=== PATIENT | female | born 1995 | race Caucasian/White ===

== ENCOUNTER 2019-11-23 13:27 | Outpatient (CLI) | payer OTHER, SELFPAY ==
--- NOTE | ~2019-11-23 | US_ITS ---
EXAMINATION: US joint non vasc ltd RT DATE: 11/23/2019 14:03 INDICATION: Right knee pain TECHNIQUE: Multiple grayscale and Doppler ultrasound images of the posterior medial aspect of the rig ht knee in the region of pain were obtained. COMPARISON: None FINDINGS: The right popliteal vein is patent and compressible. Popliteal arteries normal in caliber. No Lund's cyst or other abnormal fluid collections identified. No soft tissue masses identified or pathologica lly enlarged popliteal lymphadenopathy. IMPRESSION: 1. Normal ultrasound of the posterior and medial right knee. Reviewed, dictated and finalized at location A.
== END 2019-11-23 13:28 | disposition home or self-care (01) ==
PROVIDERS: PCP Internal Medicine Gastroenterology; Visit Provider Internal Medicine Gastroenterology
DX: M25.561 Pain in right knee (principal)
CPT/HCPCS: 76882

== ENCOUNTER 2021-12-14 08:38 | Outpatient (RCR) | payer OTHER, SELFPAY ==
[2021-12-14 10:27] LABS: Hematocrit 34.2 % (37.0-47.0); Hemoglobin 11.5 g/dL (12.0-15.0)
[2021-12-14 10:44] LABS: Glucose 1 Hour PP 50gm Dose 103 mg/dL
[2021-12-14 11:58] LABS: HIV 1/2 Ab P24 Ag Result Negative (Negative)
[2021-12-15] MEDS: RHO(D) IMMUNE GLOBULIN 300 MCG/2 ML SYRINGE IM (12:40)
== END 2022-03-14 23:59 | disposition home or self-care (01) ==
LOC: ANHLAB 08:38
PROVIDERS: Visit Provider Obstetrics & Gynecology
DX: Z11.4 Encounter for screening for human immunodeficiency virus [HIV] (principal); Z29.13 Encounter for prophylactic Rho(D) immune globulin; O36.0190 Maternal care for anti-D [Rh] antibodies, unspecified trimester, not applicable or unspecified; Z3A.00 Weeks of gestation of pregnancy not specified
CPT/HCPCS: 36415; 82947; 85014; 85018; 85461; 86703; 90384; 96372; G0432; J2790

== ENCOUNTER 2022-01-31 09:58 | Outpatient (CLI) | payer OTHER, SELFPAY ==
[2022-01-31] VITALS (9 sets, daily range): BP systolic 92–128; BP diastolic 50–77; PULSE 86–102; BMI 36.3
--- NOTE | ~2022-01-31 | US_ITS ---
EXAMINATION: US OB limited w BPP DATE: 01/31/2022 13:30 CDT INDICATION: Evaluate amniotic fluid index and biophysical profile. TECHNIQUE: Real-time transabdominal obstetric ultrasound. FINDINGS: No prior studies for comparison. There is a single living fetus in vertex presentation. The placenta is posterior fundal without plac enta previa. CHAITANYA is lower normal measuring 8.2 cm. cardiac activity and movement is noted with a heart rate of 150 beats per minute. Biophysical profile: breathin of 2 movement: 2 of 2 tone: 2 of 2 Amniotic flud pocket: 2 of 2 Total score: 8 of 8 IMPRESSION: 1. Single living intrauterine in vertex presentation. 2: Total biophysical profile score of 8/8. 3: CHAITANYA is lower normal measuring 8.2 cm. Reviewed, dictated and finalized at location B.
[2022-01-31 10:55] LABS: Alanine Aminotransferase 16 U/L (6-35); Albumin Level 3.5 g/dL (3.5-5.1); Alkaline Phosphatase 130 U/L (38-126); Anion Gap 8 mmol/L (8-16); Aspartate Amino Transferase 20 U/L (14-36); Bilirubin,Total 0.2 mg/dL (0.2-1.3); Blood Urea Nitrogen 6 mg/dL (7-17); Calcium 8.8 mg/dL (8.4-10.2); Carbon Dioxide 21 mmol/L (22-30); Chloride 108 mmol/L (98-107); Estimated Glomerular Filt Rate > 60; Glucose 119 mg/dL (65-110); Potassium 3.8 mmol/L (3.4-5.0); Sodium 137 mmol/L (137-145); Uric Acid 3.3 mg/dL (2.5-7.5)
[2022-01-31 10:56] LABS: Appearance Urine Slightly Cloudy (Clear); Bilirubin Urine Negative (Negative); Blood Urine Negative (Negative); Color Urine Yellow (Yellow); Glucose Urine UA Negative (Negative); Ketones Urine Negative (Negative); Leukocyte Esterase Ur Trace LEU/UL (Negative); Nitrate Urine Negative (Negative); Protein Urine Trace mg/dL (Negative); Specific Grav Ur >= 1.030 (1.001-1.035); Urobilinogen Urine 0.2 mg/dL (<2.0)
[2022-01-31 10:59] LABS: Add Urine Microscopic? YES
[2022-01-31 11:04] LABS: Bacteria Urine Trace /hpf; Mucus Urine Rare /lpf; Squamous Epithelial Cell Urine Many /hpf (Few)
[2022-01-31 11:05] LABS: Creatinine Urine 130.8 mg/dL; Total Protein Urine Random 8 mg/dL; Ur Ttl Prot Creatinine Ratio 0.06 mg/mg (0-0.20)
[2022-01-31 11:24] LABS: Basophils Percent Auto 0.2 % (0.2-1.2); Eosinophils Absolute Auto 0.1 K/mm3 (0-0.3); Hematocrit 33.2 % (37.0-47.0); Hemoglobin 11.1 g/dL (12.0-15.0); Immature Granulocyte Absolute 0.06 K/mm3 (0.00-0.031); Immature Granulocyte Percent A 0.7 % (0-0.5); Lymphocytes Absolute Auto 1.31 K/mm3 (0.9-3.2); Lymphocytes Percent Auto 15.8 % (18.3-44.2); Mean Corpuscular HGB Conc 33.4 g/dl (32-36); Mean Corpuscular Hemoglobin 29.4 pg (26-34); Mean Corpuscular Volume 88.1 fl (80-100); Mean Platelet Volume 12.6 fl (7.4-10.4); Monocytes Absolute Auto 0.5 K/mm3 (0.1-0.6); Monocytes Percent Auto 5.4 % (2.6-8.5); Neutrophils Absolute Auto 6.4 K/mm3 (1.3-6.7); Neutrophils Percent Auto 76.9 % (45.5-73.1); Platelet Count Result 146 k/mm3 (150-375); Red Blood Count 3.77 M/mm3 (4.2-5.4); Red Cell Distribution Width 13.7 % (11.5-14.5); White Blood Count 8.3 K/mm3 (4.5-10.0)
--- NOTE | 2022-01-31 11:54 | PC.NURSE ---
Dr. Chase informed of pt's c/o headache x's 3 days. Took Tylenol last night with no relief. Pt's BP at home were 130's/80's and she had preeclampsia with her last delivery. Informed of lab results and BP's. Discussed variable decels in otherwise reactive NST. Order received for BPP and CHAITANYA. May discharge to home if normal.
[2022-01-31] MEDS: CAFFEINE 200 MG TABLET PO (12:08)
[2022-01-31] MEDS: ACETAMINOPHEN 500 MG TABLET 1000 MG PO (12:08)
--- NOTE | 2022-01-31 13:50 | PC.NURSE ---
Dr. Chase informed CHAITANYA 8.2 cm. Order received for discharge and pt to have repeat U/S in office in 1 week to check fluid.
== END 2022-01-31 13:55 | disposition home or self-care (01) ==
LOC: ANHOBOP 10:02 → ANHOBPP 10:03
PROVIDERS: Visit Provider Obstetrics & Gynecology
DX: O13.9 Gestational [pregnancy-induced] hypertension without significant proteinuria, unspecified trimester (principal); Z3A.00 Weeks of gestation of pregnancy not specified
CPT/HCPCS: 36415; 59025; 76815; 76819; 80053; 81001; 82570; 84156; 84550; 85025; 99199; A9270

== ENCOUNTER 2022-02-16 10:20 | Outpatient (RCR) | payer OTHER, SELFPAY ==
--- NOTE | ~2022-02-16 | US_ITS ---
EXAMINATION: US OB limited w BPP DATE: 02/16/2022 11:21 INDICATION: Oligohydramnios during third trimester TECHNIQUE: Real-time pelvic ultrasound was performed. The interpreting radiologist was not present fo r the study. COMPARISON: 01/31/2022 FINDINGS: There is a single living fetus in vertex presentation. The placenta is posterior fundal. heart rate is 132 beats per minute (bpm). Amniotic fluid index of 6.6 cm which remains below normal range (5th%-95%: 7.3-23.9 cm at 38 weeks estimated gestational age) Biophysical profile performed by the technologist: breathing (30 sec sustained breathing in 30 minutes): 2 out of 2 movement (3 gross body movements in 30 minutes): 2 out of 2 tone (one episode of ebwmlas-qcthsbdst-lqvrvqh limb movement): 2 out of 2 Amniotic fluid pocket (2 cm): 2 out of 2 Total score: 8 out of 8 IMPRESSION: 1. Single living fetus in vertex presentation with heart rate of 132 bpm. 2. Biophysical profile 8 out of 8. 3. Oligohydramnios with amniotic fluid index of 6.6 cm Reviewed, dictated and finalized at location A.
[2022-02-16 11:02] VITALS: BP 137/74; PULSE 111
--- NOTE | 2022-02-16 12:01 | PC.NURSE ---
Juliane Michaels notified of CHAITANYA, Informed Dr Chase of results. No further orders.
== END 2022-03-13 10:14 | disposition home or self-care (01) ==
LOC: ANHOBOP 10:20
PROVIDERS: Visit Provider Obstetrics & Gynecology
DX: O41.03X0 Oligohydramnios, third trimester, not applicable or unspecified (principal); Z3A.38 38 weeks gestation of pregnancy
CPT/HCPCS: 59025; 76815; 76819

== ENCOUNTER 2022-02-21 16:11 | Outpatient (CLI) | payer OTHER, SELFPAY ==
[2022-02-21 16:36] LABS: Hematocrit 34.1 % (37.0-47.0); Hemoglobin 10.8 g/dL (12.0-15.0); Mean Corpuscular HGB Conc 31.7 g/dl (32-36); Mean Corpuscular Hemoglobin 27.9 pg (26-34); Mean Corpuscular Volume 88.1 fl (80-100); Mean Platelet Volume 12.4 fl (7.4-10.4); Platelet Count Result 139 k/mm3 (150-375); Red Blood Count 3.87 M/mm3 (4.2-5.4); Red Cell Distribution Width 13.8 % (11.5-14.5); White Blood Count 8.3 K/mm3 (4.5-10.0)
[2022-02-22 16:51] LABS: Rapid Plasma Reagin Non-Reactive (NonReactive)
== END 2022-02-21 16:12 | disposition home or self-care (01) ==
PROVIDERS: Visit Provider Obstetrics & Gynecology
DX: Z34.93 Encounter for supervision of normal pregnancy, unspecified, third trimester (principal); Z3A.00 Weeks of gestation of pregnancy not specified
CPT/HCPCS: 36415; 85027; 86592; 86850; 86880; 86900; 86901; 86902

== ENCOUNTER 2022-02-22 05:22 | Inpatient (IN) | payer OTHER, SELFPAY ==
--- NOTE | 2022-02-09 14:55 | PC.NURSE ---
Verified with OR schedule and patient--C/S on at 0730 Patient given requisition for lab draw on 02/21/22
[2022-02-22] VITALS (42 sets, daily range): BP systolic 106–144; BP diastolic 63–80; PULSE 58–86; RESP 15–20; TEMP 36.2–36.8; O2SAT 96–100; BMI 38.0
--- OUTSIDE RECORDS SUMMARY | 2022-02-22 05:28 | XMS_ITS ---
:1995 Author Care Team Providers Name Role Phone KENIA LEVI MD Landscape Photographer [phone] Allergies Code Code System Name Reaction Severity Status Onset NKDA ? Medications Name Status Start Date Stop Date ? ? Adult Low Dose Aspirin 81 mg tablet,delayed release Completed ? 10/31/2016 Take 1 tablet every day by oral route. amoxicillin 500 mg capsule Completed ? 08/05 azithromycin 250 mg tablet Completed ? 09/05 bupropion HCl SR 150 mg tablet,12 hr sustained-release Active ? Not available TAKE 1 TABLET BY MOUTH TWICE DAILY Calcium 600 with Vitamin D3 600 mg-10 mcg (400 unit) capsule Com pleted ? 06/02/2019 Take 1 capsule twice a day by oral route. calcium carbonate 600 mg-vitamin D3 10 mcg (400 unit) tablet Act gustavo ? Not available TAKE 1 TABLET BY MOUTH TWICE DAILY calcium carbonate 600 mg-vitamin D3 20 mcg (800 unit) tablet Com pleted ? 06/02/2019 Take 1 tablet twice a day by oral route for 30 days. citalopram 20 mg tablet Completed ? 01/28/20 17 citalopram 40 mg tablet Completed ? 01/28/20 17 clindamycin HCl 150 mg capsule Completed ? 0 11/22/2019 clindamycin HCl 300 mg capsule Completed ? 0 11/22/2019 doxycycline hyclate 100 mg capsule Completed ? 03/01/2020 Take 1 capsule twice a day by oral route. doxycycline monohydrate 100 mg capsule Completed ? 11/22/2019 ferrous sulfate 325 mg (65 mg iron) tablet Completed ? 06/02/2019 fluconazole 150 mg tablet Active ? Not av ailable USE A SINGLE DOSE FOR YEAST INFECTION fluoxetine 20 mg tablet Completed ? 11/01/19 17 gabapentin 300 mg capsule Active ? Not av ailable
--- OUTSIDE RECORDS SUMMARY | 2022-02-22 05:28 | XMS_ITS ---
:1995 Author Care Team Providers Name Role Phone LEA CARDENAS MD Primary Care Provider [phone] Allergies Code Code System Name Reaction Severity Status Onset NKDA ? Medications Name Status Start Date Stop Date ? ? amoxicillin 875 mg-potassium clavulanate 125 mg tablet Unknown ? Not available calcium carbonate 600 mg-vitamin D3 20 mcg (800 unit) tablet Com pleted ? 09/16/2018 TK 1 T PO BID clindamycin HCl 150 mg capsule Completed ? 0 09/16/2018 clindamycin HCl 300 mg capsule Completed ? 0 09/16/2018 fluconazole 150 mg tablet Completed ? 2018 fluconazole 200 mg tablet Unknown ? Not av ailable TK 1 T PO QD fluoxetine 10 mg tablet Completed ? 07/19/19 15 fluoxetine 20 mg tablet Completed ? 09/17/19 19 Take 1 tablet(s) every day by oral route. gabapentin 300 mg capsule Completed ? 2018 TK 1 C PO TID hydrocodone 5 mg-acetaminophen 325 mg tablet Active ? Not available hydrocodone 7.5 mg-ibuprofen 200 mg tablet Completed ? 09/16/2018 ibuprofen 600 mg tablet Unknown ? Not avai lable ibuprofen 800 mg tablet Completed ? 09/17/19 19 meloxicam 7.5 mg tablet Active ? Not avai lable nitrofurantoin macrocrystal 100 mg capsule Unknown ? Not available nitrofurantoin monohydrate/macrocrystals 100 mg capsule Complete d ? 09/16/2018 penicillin V potassium 500 mg tablet Completed ? 09/16/2018 phenazopyridine 200 mg tablet Unknown ? No t available TK 1 T PO TID Q EIGHT H rizatriptan 10 mg tablet Active ? Not gregg ilable TK 1 T PO AT ONSET OF MIGRAINE AND MAY REPEAT IN 2 H DO NOT TAKE MORE THAN 2 TS PER DAY
[2022-02-22 06:08] LABS: Mean Platelet Volume 12.7 fl (7.4-10.4); Platelet Count Result 139 k/mm3 (150-375)
--- NOTE | 2022-02-22 06:09 | LDADM ---
This patient, Rosa Jeter, was admitted to Labor/Delivery/Recovery 119 on 02/22/22 at 05:22. Plans for labor, pain management and were discussed with patient. Patient/family oriented to hospital policies and general routines including ID bracelet, bed and alarms, visiting hours, pain management, procedures, bathroom and other care routines, personal items, smoking policy, room service/diet and guest tray routines, infant security routines, and visiting hours. Patient/Family are encouraged to report perceived risks to care and to ask questions if they do not understand what they are told or what they should do. See OBIX for further documentation.
--- NOTE | 2022-02-22 06:49 | WPDANESEPPF ---
Anes - Initial Pre Proc Eval Procedure: Operation Date: 02/22/22 07:30 Proposed Procedures p Repeat Section - Kehinde Chase MD Date/Time: 02/22/22 06:49 Surgeon: Kehinde Chase MD Pre Op Diagnosis: C/S Patient Data Age: 26 Gender: F Height: 1.65 m Weight: 103.5 kg Last Vital Signs Temp 36.7 C 02/22/22 06:16 Pulse 83 02/22/22 06:31 BP 127/77 02/22/22 06:31 O2 Del Method Room Air 02/22/22 06:08 Allergies Allergy/AdvReac Type Severity Reaction Status Date / Time No Known Allergies Allergy Verified 02/09/22 14:30 Home Medications Medication Instructions Recorded Confirmed Type cetirizine 10 mg tablet (Zyrtec) 10 mg PO DAILY PRN Allergy Symptoms 01/31/22 02/22/22 History gabapentin 300 mg capsule 300 mg PO BID 01/31/22 02/22/22 History magnesium 200 mg tablet 200 mg PO DAILY 01/31/22 02/22/22 History vit no.95-ferrous 1 tablet PO DAILY 01/31/22 02/22/22 History fumarate 28 mg-folic acid 800 mcg tablet () hydrocodone 5 mg-acetaminophen 325 1 tablet PO Q4H PRN pain #25 tabs 02/24/22 Rx mg tablet Laboratory Tests 02/22/22 02/22/22 06:01 06:01 Plt Count 139 k/mm3 L k/mm3 (150-375) MPV 12.7 fl H fl (7.4-10.4) HIV 1&2 Ab/P24 Ag 4thGn Pending Patient hx anesthesia problems: none Family hx anesthesia problems: none Results Review: All pre-operative results and documents have been reviewed as part of the pre-operative evaluation. [facility] Family History Family History (Updated 02/09/22 @ 14:32 by Della Quinteros RN) Grandparent Congestive heart failure Breast cancer in female Social History Social History Smoking status: Never smoker Substance use: never Spiritual care concerns: No Anes - Eval Final PreProcedure Day of Procedure 02/22/22 06:49 Patient weight: obese Heart: regular rate and rhythm Lungs: clear to auscultation and normal air movement Airway: Mallampati scale class II Neurological: alert and oriented Last oral intake: >/= 8 hours ASA classification: II Emergent: no Anesthetic plan: proceed Anesthesia type and monitoring: regional spinal Results Review: All pre-operative results and documents have been reviewed as part of the pre-operative evaluation. Informed Consent: The patient's anesthetic plan and its attendant risks and benefits were discussed with the patient/family/POA. Questions were solicited and answers provided to the satisfaction of the patient/family/POA.
[2022-02-22] MEDS: LACTATED RINGERS 1,000 ML 125 ML IV CONT (06:54)
[2022-02-22 07:05] LABS: HIV 1/2 Ab P24 Ag Result Negative (Negative)
--- NOTE | 2022-02-22 07:23 | PM.IMHP ---
H&P: HPI History of Present Illness Date/Time: 02/22/22 07:23 Chief Complaint: Term Narrative: this patient is a 26-year-old multiparous female at 39 weeks gestation with history of previous delivery who presents for repeat delivery. She understands there is risk of the surgery. She understands that injuries may occur that result in hospitalization, more surgery, severe illness. She understands risk of hemorrhage and infection. Review of Systems Review of Systems: All systems reviewed & are unremarkable except as noted in HPI and below Constitutional: Constitutional: Denies chills, Denies fatigue, Denies fever(s) and Denies weakness Eyes: Eyes: Denies blurry vision, Denies change in vision, Denies loss of peripheral vision, Denies loss of vision, Denies other visual disturbances and Denies eye pain ENT: Denies vertigo, Denies dizziness, Denies hearing loss, Denies mouth pain, Denies nasal obstruction, Denies neck mass and Denies neck pain Cardiovascular: Cardiovascular: Denies chest pain, Denies diaphoresis, Denies syncope, Denies leg edema and Denies dyspnea Respiratory: Respiratory: Denies chest congestion, Denies cough, Denies hemoptysis, Denies dyspnea and Denies wheezing Gastrointestinal: Gastrointestinal: Denies abdominal pain, Denies constipation, Denies diarrhea, Denies nausea and Denies vomiting Genitourinary: Genitourinary: Denies hematuria, Denies change in libido, Denies nocturia, Denies genital lesions, Denies flank pain and Denies urinary urgency Musculoskeletal: Musculoskeletal: Denies abnormal gait, Denies back pain, Denies myalgias, Denies arthralgias, Denies joint swelling, Denies muscle weakness and Denies neck pain Integumentary/Breasts: Skin/Breast: Denies swelling, Denies breast pain, Denies breast mass, Denies dry skin, Denies nipple discharge, Denies unusual bruising and Denies jaundice Neurologic: Denies Neuro-related abnormal movements, Denies Abnormal speech present, Denies abnormal gait, Denies behavioral changes, Denies confusion, Denies vertigo, Denies dizziness, Denies syncope, Denies loss of vision, Denies memory loss, Denies convulsions and Denies weakness Psychiatric: Psychiatric: Denies abnormal sleep pattern, Denies behavioral changes, Denies change in libido, Denies confusion, Denies depression, Denies anhedonia and Denies memory loss Endocrine: Endocrine: Reports no additional endocrine complaints, Denies change in libido and Denies fatigue Hematologic/Lymphatic: Hematologic/Lymphatic: Reports no additional hematologic/lymphatic complaints Allergic/Immunologic: Allergic/Immunologic: Reports no additional allergic/immunologic complaints and Denies wheezing [facility] Family History Family History (Updated 02/09/22 @ 14:32 by Della Quinteros RN) Grandparent Congestive heart failure Breast cancer in female Social History Social History Smoking status: Never smoker Substance use: never Spiritual care concerns: No Meds Home Medications and Allergies Home Medications Medication Instructions Recorded Confirmed Type cetirizine 10 mg tablet (Zyrtec) 10 mg PO DAILY PRN Allergy Symptoms 01/31/22 02/22/22 History gabapentin 300 mg capsule 300 mg PO BID 01/31/22 02/22/22 History magnesium 200 mg tablet 200 mg PO DAILY 01/31/22 02/22/22 History vit no.95-ferrous 1 tablet PO DAILY 01/31/22 02/22/22 History fumarate 28 mg-folic acid 800 mcg tablet () Allergies Allergy/AdvReac Type Severity Reaction Status Date / Time No Known Allergies Allergy Verified 02/09/22 14:30 Vital Signs Vital Signs - 24 hr 02/22/22 06:08 02/22/22 06:16 02/22/22 06:31 Temperature 98.1 F Pulse Rate 83 83 Blood Pressure 126/79 127/77 Oxygen Delivery Room Air Exam Const: General: cooperative, healthy appearing, comfortable and no acute distress; No confusion Orientation/consciousness: oriented to person, oriented to place, orie
--- NOTE | 2022-02-22 07:26 | WPDHPUPDATE1 ---
History and Physical Update Update Date/Time: 02/22/22 07:26 History and Physical has been reviewed, including an updated exam of the patient. There are NO changes in the patient's condition. Risks, benefits, and alternatives have been discussed and questions answered. Patient agrees to proceed with procedure.
[2022-02-22] MEDS: ceFAZolin 2 GM/D5W 50 ML 2 GM/50 ML BAG IVPB (07:30)
--- NOTE | 2022-02-22 08:24 | W.PM.PROC2 ---
Procedure Note - Detailed Date of Procedure 02/22/22 Pre-op Diagnosis Previous delivery. Term gestation Post-op Diagnosis Same Procedure Performed Low-transverse section Surgeon Kehinde Chase MD Anesthesia Spinal Indications Previous delivery, term gestation Findings Normal gestational maternal anatomy, average size , normal Apgars. Description of Procedure The patient was taken the operating room. She was prepped and draped in dorsal supine position with a leftward tilt. This was done after spinal anesthetic was applied. A low-transverse skin incision was made and carried down till of the fascia with the knife. The fascial incision was made with the knife. The fascial incision was extended laterally with Strong scissors. The fascia was tented upward superiorly and inferiorly the rectus muscles were dissected off bluntly. The rectus muscles were the midline. The preperitoneal fat and peritoneum were dissected open bluntly at the superior aspect of the rectus muscles. The peritoneal incision was extended superior and inferior with good position of bladder. The uterine incision was made with a scalpel down to the level of the amniotic cavity. The amniotic cavity was entered bluntly. The was delivered. The cord was clamped and cut and the infant was handed off to waiting pediatric staff. Cord bloods were obtained. The placenta was removed manually. The uterus was exteriorized. The uterus was cleared of all clots, debris and membranes. The uterus was closed in 0 Vicryl running lock fashion. An imbricating over a was placed along the incision line as well. The uterus was returned to the abdomen. The gutters were cleared of all clots and debris. The fascia was closed with 0 Vicryl running fashion. The subcutaneous tissue was irrigated pinpoint bleeders were cauterized. The skin was closed with subcuticular absorbable sujatha. The skin incision line was covered with glue. The patient tolerated the procedure well. She has taken recovery room in stable condition. Sponge lap and needle counts were correct x2. Estimated Blood Loss 500 Complications No immediate complications Condition Stable Disposition PACU
--- NOTE | 2022-02-22 10:42 | OBPPTRN ---
Patient transferred to post room # 279 via stretcher. Support person present. Oriented to unit, room, information board, rooming in, admission packet and security measures. Patient verbalizes understanding.
[2022-02-22] MEDS: KETOROLAC 30 MG/ML VIAL (*BKC) IV PUSH (11:58)
[2022-02-22] MEDS: DOCUSATE SODIUM 100 MG CAPSULE PO (16:19)
[2022-02-22] MEDS: DEXTROSE 5%/0.45% SOD CHL 1,000 ML 125 ML IV CONT (16:25)
[2022-02-22] MEDS: HYDROcodone/acetaminophen (*CRX) 5-325 MG TABLET 1 TAB PO (20:31)
[2022-02-22] MEDS: IBUPROFEN 600 MG TABLET PO (20:31)
[2022-02-23 00:25] VITALS: BP 128/65; PULSE 87; RESP 16; TEMP 36.8
[2022-02-23] MEDS: HYDROcodone/acetaminophen (*CRX) 5-325 MG TABLET 1 TAB PO ×4 (00:40→19:14)
[2022-02-23 04:35] VITALS: BP 123/64; PULSE 87; RESP 16; TEMP 36.6
[2022-02-23] MEDS: IBUPROFEN 600 MG TABLET PO ×3 (04:51→19:13)
[2022-02-23 05:03] LABS: Basophils Percent Auto 0.2 % (0.2-1.2); Eosinophils Absolute Auto 0.1 K/mm3 (0-0.3); Eosinophils Percent Auto 1.4 % (0-4.4); Hematocrit 33.6 % (37.0-47.0); Hemoglobin 10.6 g/dL (12.0-15.0); Immature Granulocyte Absolute 0.06 K/mm3 (0.00-0.031); Immature Granulocyte Percent A 0.6 % (0-0.5); Lymphocytes Percent Auto 15.7 % (18.3-44.2); Mean Corpuscular HGB Conc 31.5 g/dl (32-36); Mean Corpuscular Volume 88.9 fl (80-100); Monocytes Absolute Auto 0.7 K/mm3 (0.1-0.6); Monocytes Percent Auto 7.3 % (2.6-8.5); Neutrophils Absolute Auto 7.1 K/mm3 (1.3-6.7); Neutrophils Percent Auto 74.8 % (45.5-73.1); Platelet Count Result 118 k/mm3 (150-375); Red Blood Count 3.78 M/mm3 (4.2-5.4); Red Cell Distribution Width 14.1 % (11.5-14.5); White Blood Count 9.5 K/mm3 (4.5-10.0)
--- NOTE | 2022-02-23 07:20 | P.PNOB_ITS ---
OB - PN: Subj Subjective Date/time seen: 02/23/22 07:20 Patient comments: no complaints baby status: nursing well feeding status: exclusively breast feeding Narrative: POD 1 from primary CS. Doing well. Normal lochia. Eating, ambulating, jones out. OB - PN: Obj Data Labs CBC & Chem 7: 02/23/22 04:36 Labs: Laboratory Results - last 24 hr 02/23/22 04:36 WBC 9.5 RBC 3.78 L Hgb 10.6 L Hct 33.6 L MCV 88.9 MCH 28.0 MCHC 31.5 L RDW 14.1 Plt Count 118 L MPV 13.0 H Immature Gran % (Auto) 0.6 H Neut % (Auto) 74.8 H Lymph % (Auto) 15.7 L Christian % (Auto) 7.3 Eos % (Auto) 1.4 Baso % (Auto) 0.2 Lymph # (Auto) 1.50 Christian # (Auto) 0.7 H Eos # (Auto) 0.1 Baso # (Auto) 0.0 Abs Immat Gran (auto) 0.06 H Absolute Neuts (auto) 7.1 H Absolute Nucleated RBC 0.0 Nucleated RBC % 0.0 OB - PN A/P Plan day: 1 Plan: routine care Comments: circ done after consented. routine care Time Spent With Patient Time: Total time spent is greater than 50% in coordination of care (as documented) at patient's floor/unit and/or counseling patient: Exam Narrative: NAD abdomen soft, appropriately tender, incision bandaged Extremities nontender with 1+ edema
[2022-02-23 08:00] VITALS: PULSE 87; RESP 16; O2SAT 99
[2022-02-23 08:05] VITALS: BP 124/63; PULSE 78; RESP 18; TEMP 36.1; O2SAT 100
[2022-02-23] MEDS: DOCUSATE SODIUM 100 MG CAPSULE PO ×2 (09:22→16:12)
[2022-02-23] MEDS: SIMETHICONE 80 MG TAB.CHEW PO ×4 (09:22→23:01)
[2022-02-23] MEDS: MULTIVIT/MIN/PREN/FOL AC/IRON TABLET 1 TAB PO (09:22)
[2022-02-23] MEDS: HYDROcodone/acetaminophen (*CRX) 10-325 MG TABLET 1 TAB PO ×3 (09:22→23:02)
--- NOTE | 2022-02-23 10:06 | WPDANLDNPN2 ---
Anes-Prog Note L&D-Neuraxial Date/Time: 02/23/22 10:06 Patient feedback: Patient satisfied with post-operative pain management.
--- NOTE | 2022-02-23 10:06 | WPDANLDPN2 ---
Anes-Prog Note L&D Date/Time: 02/23/22 10:06 Neuro status: Neuro function grossly intact. Vital Signs: Last Vital Signs Temp 36.6 C 02/23/22 04:35 Pulse 87 02/23/22 04:35 Resp 16 02/23/22 04:35 BP 123/64 02/23/22 04:35 Pulse Ox 99 02/22/22 12:12 O2 Del Method Room Air 02/22/22 06:08 Pain score (VAS): 0 I/O: Intake & Output 02/22/22 02/23/22 02/23/22 23:59 07:59 15:59 Intake Total 1800 1800 Output Total 450 2400 Balance 1350 -600 Patient feedback: Patient satisfied with anesthetic care.
[2022-02-23 19:22] VITALS: BP 143/68; PULSE 91; RESP 16; TEMP 36.4; O2SAT 100
[2022-02-24] MEDS: SIMETHICONE 80 MG TAB.CHEW PO ×2 (04:34→09:52)
[2022-02-24] MEDS: IBUPROFEN 600 MG TABLET PO (04:34)
[2022-02-24] MEDS: HYDROcodone/acetaminophen (*CRX) 5-325 MG TABLET 1 TAB PO ×2 (04:35→09:51)
[2022-02-24 07:20] VITALS: BP 107/66; PULSE 80; RESP 18; TEMP 36.4; O2SAT 99
[2022-02-24] MEDS: DOCUSATE SODIUM 100 MG CAPSULE PO (09:51)
--- NOTE | 2022-02-24 13:02 | P.PNOB_ITS ---
OB - PN: Subj Subjective Date/time seen: 02/24/22 13:02 Patient comments: no complaints, pain well controlled, incisional pain, tolerating diet and flatus present OB - PN: Obj Data Labs CBC & Chem 7: 02/23/22 04:36 OB - PN A/P Plan day: 2 Plan: routine care Comments: POD#2 LTCS - no problems, Time Spent With Patient Time: Total time spent is greater than 50% in coordination of care (as documented) at patient's floor/unit and/or counseling patient: Exam Const: General: comfortable, no acute distress and alert Resp: Effort & Inspection: normal respiratory effort Auscultation: no c rackles, no rales and no rhonchi Cardio: Rate: regular rate Heart sounds: no click, no murmurs and no rubs GI: Inspection: non-distended GI Palp: No Tenderness to palpation present (GI) Auscultation: normal bowel sounds Other: Incision - CDI Extrem: General: normal to inspection, no pedal edema and no calf tenderness
--- NOTE | 2022-02-24 13:03 | PM.OBDSVD ---
DS: Admitting Diagnosis Discharge Date February 24, 2022 Admitting Diagnosis previous DS: Discharge Diagnosis Discharge Diagnosis (1) Previous section: Code(s): Z98.891 - History of uterine scar from previous surgery Status: Acute OB - DS: Summary OB Procedures : None OB Procedures Intrapartum: OB Procedures: : None Peripartum Data Procedures: Procedures Operation Date: 02/22/22 07:30 Actual Procedure Side Surgeon p Repeat Section Bilateral Kehinde Chase MD Time Spent with Patient Time attestation: Total time spent providing and/or coordinating discharge services: Discharge Plan Discharge Discharging Clinician: Kehinde Chaes Patient Disposition: Home, Self-Care Activity: pelvic rest Diet: regular Patient Instructions: Antibiotic Form Stand Alone Forms: General Discharge Information Follow-up/Referrals: Kehinde Chase MD [Physician] - Discharge Medications: New hydrocodone-acetaminophen 5-325 mg tablet 1 tablet PO Q4H PRN (Reason: pain) Qty: 25 0RF Continued cetirizine [Zyrtec] 10 mg Tablet 10 mg PO DAILY PRN (Reason: Allergy Symptoms) gabapentin 300 mg capsule 300 mg PO BID magnesium 200 mg Tablet 200 mg PO DAILY PNV cmb#95-ferrous fumarate-FA [] 28 mg iron- 800 mcg Tablet 1 tablet PO DAILY Date of admission: 02/22/22 05:22 Primary Care Provider: PHYSICIAN,RAILROAD CAR PAINTER Admitting Provider: Kehinde Chase Attending physician on admission: Kehinde Chase Condition: Stable
[2022-02-26 08:54] VITALS: BP 131/85; PULSE 88; RESP 20; TEMP 37.1; O2SAT 99
== END 2022-02-24 14:05 | disposition home or self-care (01) | DRG 540 ==
LOC: ANHLDR 05:26 → ANHOB2 10:52
PROVIDERS: Admitting Provider Obstetrics & Gynecology; Visit Provider Obstetrics & Gynecology
PROC: 10D00Z1 Extraction of Products of Conception, Low, Open Approach (ICD-10-PCS; CPT 59514; principal; 2022-02-22 07:30)
DX: O34.211 Maternal care for low transverse scar from previous cesarean delivery (principal); Z37.0 Single live birth; Z3A.39 39 weeks gestation of pregnancy
CPT/HCPCS: 36415; 85025; 85027; 85049; 86592; 86703; 86850; 86880; 86900; 86901; A9270; G0432; J0690; J1885; J2274; J3010; J7120

== ENCOUNTER 2022-10-07 11:19 | Outpatient (CLI) | payer OTHER, SELFPAY ==
--- NOTE | ~2022-10-07 | MMUS_ITS ---
EXAMINATION: MM diagnostic nestor BI w elva, US breast BI complete HISTORY: Recent left breast discharge, resolved after antibiotic treatment TECHNIQUE: Bilateral full field and right spot 3-D tomosynthesis images were performed and synthetic 2-D images were generated. CAD analysis was submitted and interpreted. High resolution complete bilat eral breast ultrasound examination including all 4 quadrants and subareolar areas was performed. COMPARISON: None BREAST PARENCHYMAL COMPOSITION: The breasts are extremely dense, which lowers the sensitivity of mamm ography. FINDINGS: MAMMOGRAPHIC FINDINGS: Architectural distortion is suggested in the anterior central right breast. Otherwise no suspicious mass, architectural distortion, malignant calcification, skin thickening or r etraction of either breast is detected. ULTRASOUND: Right breast 2:00: Oval 5.5 x 3.9 x 4.5 mm circumscribed sonolucency without internal vascularity or posterior shadowing, benign in appearance. Normal-appearing lymph nodes are noted in the left axilla No suspicious mass or shadowing of either breast is detected. IMPRESSION: 1. No mammographic evidence of malignancy 2. Routine mammographic screening is recommended BI-RADS Category 2: Benign finding(s). Reviewed, dictated and finalized at location A. IMPRESSION: 1. No mammographic evidence of malignancy 2. Routine mammographic screening is recommended BI-RADS Category 2: Benign finding(s).
== END 2022-10-07 11:20 | disposition home or self-care (01) ==
LOC: ANHIMG 11:21
PROVIDERS: Visit Provider Advanced Practice Midwife
DX: N64.52 Nipple discharge (principal)
CPT/HCPCS: 76641; 77062; 77066; G0279

== ENCOUNTER 2023-04-18 13:39 | Outpatient (CLI) | payer BC, MEDICAID, SELFPAY ==
--- NOTE | 2023-04-18 13:56 | ECHO_ITS ---
Patient Info Name: Rosa Mcarthur Age: 27 years : 1995 Gender: Female Ht: 66 in Wt: 190 lbs BSA: 2.03 m2 HR: 78 bpm BP: 118 / 72 mmHg Technical Quality: Fair Exam Date: 04/18/2023 2:02 PM Exam Location: Echo Lab Patient Status: Outpatient Admit Date: 04/18/2023 Staff Ordering Physician: Travis Overton DO [place] Worker: Elza Luna RDCS Attending Provider: Travis Overton DO Referring Physician: Tian PATIÑO; Exam Type: CA echo doppler color flow Study Info Indications - syncope and collapse Complete two-dimensional, color flow and Doppler transthoracic echocardiogram is performed. Summary 1. Complete two-dimensional, color flow and Doppler transthoracic echocardiogram is performed. 2. Left ventricular chamber dimension is normal. 3. Left ventricular systolic function is normal, estimated at 60-65%. 4. The left ventricular diastolic function is normal. 5. E/e' 4 is not elevated. 6. There is trace tricuspid valve regurgitation. 7. No pulmonary hypertension, estimated pulmonary arterial systolic pressure is 33 mmHg. Left Ventricle E/e' 4 is not elevated. Left ventricular chamber dimension is normal. Left ventricular systolic function is normal, estimated at 60-65%. The left ventricular diastolic function is normal. Right Ventricle Right ventricular chamber dimension is normal. Right ventricular systolic function is normal. Left Atria Left atrial chamber dimension is normal. Right Atria Right atrial chamber dimension is normal. Aortic Valve The aortic valve is trileaflet. There is no aortic valve stenosis. There is no aortic valve regurgitation. Pulmonic Valve There is no pulmonic regurgitation. Mitral Valve There is no mitral valve stenosis. There is no mitral valve regurgitation. Tricuspid Valve There is trace tricuspid valve regurgitation. No pulmonary hypertension, estimated pulmonary arterial systolic pressure is 33 mmHg. Pericardium/Pleural There is no pericardial effusion. Inferior Vena Cava Normal inferior vena cava with >50% collapse upon inspiration consistent with normal right atrial pressure, 5 mmHg. Aorta The aortic root size at the sinus of Valsalva is normal. Left Ventricular Outflow Tract Name Value Normal LVOT 2D LVOT Diameter 2.0 cm LVOT Doppler LVOT Peak Gradient 4 mmHg LVOT Mean Gradient 3 mmHg LVOT VTI 21 cm LVOT VTI/AV VTI Ratio 0.8 LVOT Stroke Volume 66 ml LVOT CO 14.8 l/min LVOT CI 7.3 l/min/m2 Pulmonic Valve Name Value Normal PV Doppler PV Peak Gradient 3 mmHg Mitral Valve Name Value Normal
== END 2023-04-18 13:40 | disposition home or self-care (01) ==
LOC: ANHCARD 13:40
PROVIDERS: Visit Provider Internal Medicine Cardiovascular Disease
DX: R55 Syncope and collapse (principal)
CPT/HCPCS: 93306

== ENCOUNTER 2025-01-28 15:32 | Outpatient (CLI) | payer BC, SELFPAY ==
--- NOTE | ~2025-01-28 | MR_ITS ---
MRI of the right knee Clinical history: Injury Technique: Coronal proton density and proton density-weighted images, sagittal proton-density and T2 fat-sat images, and axial proton-density fat-saturated images were acquired. Findings: Anterior cruciate ligament is intact. 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 Medial collateral ligament and the lateral collateral ligament complex are intact. Popliteus tendon is intact. Medial and lateral menisci are intact, without evidence of tear. Articular cartilage is well preserved throughout the knee. Bone marrow signals are unremarkable. Extensor mechanism is intact. No joint effusion or Lund's cyst. Impression: Poor delineation of the posterior cruciate ligament, which may be chronically torn. Correlate with an y relevant clinical history. No other significant findings. Reviewed, dictated and finalized at location . Impression: Poor delineation of the posterior cruciate ligament, which may be chronically t orn. Correlate with any relevant clinical history. No other significant findings.
== END 2025-01-28 15:33 | disposition home or self-care (01) ==
LOC: GOSHIMG 15:32
PROVIDERS: PCP Orthopaedic Surgery; Visit Provider Orthopaedic Surgery
DX: S89.91XA Unspecified injury of right lower leg, initial encounter (principal); M25.361 Other instability, right knee; X58.XXXA Exposure to other specified factors, initial encounter
CPT/HCPCS: 73721